=== PATIENT | male | born 1960 | race Hispanic/Latino ===

== ENCOUNTER 2018-01-28 10:50 | Inpatient (IN) | payer BC, OTHER ==
[2018-01-28 10:57] VITALS: BMI 26.4
[2018-01-28] MEDS ORDERED: Sodium Chloride 0.9% 1,000 ML IV STA ×3 (11:36→15:40)
[2018-01-28 12:44] LABS: BASO % 0.1 % (0.0-2.0); EOS % 0.1 % (0.0-4.0); HEMOGLOBIN 14.6 g/dL (12.0-18.0); LYMPH # 0.9 K/uL (1.0-4.3); LYMPH % 8.3 % (20.0-40.0); MEAN CORPUSCULAR HGB CONC 33.3 g/dL (33.0-37.0); MEAN PLATELET VOLUME 10.6 fl (7.2-11.7); MONO # 1.2 K/uL (0.0-0.8); MONO % 10.7 % (0.0-10.0); NEUT # 8.7 K/uL (1.8-7.0); NEUT % 80.8 % (50.0-75.0); NRBC % 0.1 % (0.0-0.0); PLATELET COUNT 162 K/uL (130-400); RBC 5.22 Mil/uL (4.40-5.90); RED CELL DISTRIBUTION WIDTH 14.9 % (11.5-14.5); WHITE BLOOD COUNT 10.8 K/uL (4.8-10.8)
[2018-01-28 12:47] LABS: SQUAMOUS EPITHIAL 1 /hpf (0-5); URINE BILIRUBIN NEGATIVE (NEGATIVE); URINE BLOOD NEGATIVE (NEGATIVE); URINE CLARITY SLIGHTY-CLOUDY (Clear); URINE COLOR YELLOW (YELLOW); URINE GLUCOSE (UA) NEG (Normal); URINE LEUKOCYTE ESTERASE NEG Leu/uL (Negative); URINE PROTEIN 30 mg/dL (NEGATIVE); URINE UROBILINOGEN 0.2-1.0 mg/dL (0.2-1.0)
[2018-01-28 12:50] LABS: INR 1.2; PROTHROMBIN TIME 13.5 Seconds (9.8-13.1)
[2018-01-28 12:52] LABS: PARTIAL THROMBOPLASTIN TIME 28.7 Seconds (25.6-37.1)
[2018-01-28 12:55] LABS: ALB/GLOB RATIO 1.1 (1.0-2.1); ALT/SGPT 64 U/L (21-72); AST/SGOT 40 U/L (17-59); BLOOD UREA NITROGEN 16 mg/dl (9-20); CALCIUM 9.2 mg/dL (8.4-10.2); GFR NON-AFRICAN AMERICAN > 60; LIPASE 24 U/L (23-300)
--- NOTE | 2018-01-28 12:58 | CT ---
Date of service: 01/28/2018 PROCEDURE: CT Abdomen and Pelvis without intravenous contrast HISTORY: rule out renal stone COMPARISON: CT scan of the abdomen and pelvis dated 10/27/2014. TECHNIQUE: Contiguous images were obtained from the domes of the diaphragms to the upper thighs without the administration of intravenous contrast. Oral contrast was not administered. Radiation dose: Total exam DLP = 539.2 mGy-cm. This CT exam was performed using one or more of the following dose reduction techniques: Automated exposure control, adjustment of the mA and/or kV according to patient size, and/or use of iterative reconstruction technique. FINDINGS: LOWER THORAX: Medial right lower lobe patchy consolidation. Heart size normal. No pleural effusion LIVER: Unremarkable. No gross lesion or ductal dilatation. GALLBLADDER AND BILE DUCTS: Unremarkable. PANCREAS: Unremarkable. No gross lesion or ductal dilatation. SPLEEN: Unremarkable. ADRENALS: Unremarkable. No mass. KIDNEYS AND URETERS: Punctate left upper pole calculus. No hydronephrosis. No solid mass. VASCULATURE: Unremarkable. No aortic aneurysm. BOWEL: Unremarkable. No obstruction. No gross mural thickening. APPENDIX: Appendicolith without appendiceal wall thickening. PERITONEUM: Small fat containing umbilical hernia. Small fat containing left inguinal hernia. No free fluid. No free air. LYMPH NODES: Unremarkable. No enlarged lymph nodes. BLADDER: Unremarkable. REPRODUCTIVE: Unremarkable. BONES: No acute fracture. OTHER FINDINGS: None. IMPRESSION: Right lower lobe pneumonia. Punctate nonobstructive left nephrolith. Redemonstration of calcified appendicolith without CT evidence for acute appendicitis.
[2018-01-28 13:32] LABS: BANDS 1 % (0-2); LYMPHOCYTE 11 % (20-50); MONOCYTE 9 % (0-10); NEUTROPHIL 79 % (42-75); TOTAL CELLS COUNTED 100
[2018-01-28 13:33] LABS: ANISOCYTOSIS SLIGHT; PLATELET ESTIMATE NORMAL (NORMAL)
--- NOTE | 2018-01-28 13:56 | RAD ---
Date of service: 01/28/2018 HISTORY: possible admission COMPARISON: No prior. FINDINGS: LUNGS: Medial right lower lobe patchy consolidation. PLEURA: No significant pleural effusion identified, no pneumothorax apparent. CARDIOVASCULAR: Normal. OSSEOUS STRUCTURES: No significant abnormalities. VISUALIZED UPPER ABDOMEN: Normal. OTHER FINDINGS: None. IMPRESSION: Medial right lower lobe patchy consolidation.
[2018-01-28 14:22] LABS: VENOUS BLOOD GAS BASE EXCESS 1.7 mmol/L (0.0-2.0); VENOUS BLOOD GAS PCO2 38 mmHg (40-60); VENOUS BLOOD GAS PO2 23 mm/Hg (30-55); VENOUS BLOOD PH 7.44 (7.32-7.43)
[2018-01-28] MEDS ORDERED: cefTRIAXone (Rocephin) 1 gm Inj ONE (14:22)
--- NOTE | 2018-01-28 15:05 | ED PDOC ---
HPI: General Adult Time Seen by Provider: 01/28/18 11:20 Chief Complaint (Nursing): Fever Chief Complaint (Provider): Fever and right back pain History Per: Patient History/Exam Limitations: no limitations Onset/Duration Of Symptoms: Days (x5) Current Symptoms Are (Timing): Still Present Additional Complaint(s): 57 year old male with 5 days of worsening fever and right back pain radiating to right leg states he has history of renal stones with a previous stent placed on left at this hospital. Stent has since been removed without problems. Patient went to an urgent care center several days ago where he was diagnosed with sciatic pain and constipation and given outpatient medications. This morning patient went to follow up with PMD and based on being febrile with rigors, worsening pain and fever, he was referred to the ED to rule out stones and pylenephritis. Of note, patient states he started coughing yesterday with clear sputum, but without any chest pain. PMD: Dr. Harper Allergies: none Medications: none Past Medical History Reviewed: Historical Data, Nursing Documentation, Vital Signs Vital Signs: Last Vital Signs Temp 98.4 F 02/01/18 08:50 Pulse 50 L 02/01/18 08:50 Resp 18 02/01/18 08:50 BP 129/80 02/01/18 08:50 Pulse Ox 100 02/02/18 10:58 - Medical History PMH: Kidney Stones Denies: Chronic Kidney Disease - Family History Family History: States: Unknown Family Hx - Home Medications Home Medications: Ambulatory Orders Medication Instructions Recorded RX: Levofloxacin [Levaquin] 750 mg PO DAILY 7 Days #7 tablet 02/01/18 - Allergies Allergies/Adverse Reactions: Allergies Allergy/AdvReac Type Severity Reaction Status Date / Time No Known Allergies Allergy Verified 10/27/14 06:52 Review of Systems ROS Statement: Except As Marked, All Systems Reviewed And Found Negative Constitutional: Positive for: Fever, Chills, Sweats, Other (shaking) Musculoskeletal: Positive for: Back Pain (right and right flank pain ), Leg Pain (right) Physical Exam - Reviewed Nursing Documentation Reviewed: Yes Vital Signs Reviewed: Yes - Physical Exam Skin: Positive for: Diaphoresis (shaking, chills) Gastrointestinal/Abdominal: Positive for: Normal Exam, Soft. Negative for: Tenderness Extremity: Positive for: Normal ROM (full ROM on stretcher) Comments: Exam is significant for right flank pain. Patient is in no cardiopulmonary distress, is borderline febrile, but otherwise vitals are within normal limits. - Laboratory Results Result Diagrams: 02/01/18 05:55 02/01/18 05:55 - ECG O2 Sat by Pulse Oximetry: 100 (RA) Pulse Ox Interpretation: Normal Medical Decision Making Medical Decision Making: Time: 1134 Workup for pylenephritis versus renal stones. Rule out sepsis. Initial Plan: --labs with lactate and cultures --Morphine and toradol for pain --IV fluids --CT abdomen and pelvis w/o contrast Time: 1313 --CT shows right lower lung infiltrate. Labs otherwise unremarkable. Patient with improved vitals and pain. Will get CXR for further evaluation. IV Cipro initially given for possible pylenephritis and Rocephin for pain. Will reevaluate patient based on symptoms of back pain as CT findings are not consistent with pylenephritis and renal stones as a cause of pain. Time: 1600 --Case discussed with PMD, Dr. Harper, who agrees with admission for pneumonia. Patient will be admitted under the hospitalist. Scribe Attestation: Documented by Dorinda Schofield, acting as a scribe for Karolina Lerma MD Provider Scribe Attestation: All medical record entries made by the Scribe were at my direction and personall y dictated by me. I have reviewed the chart and agree that the record accurately reflects my personal performance of the history, physical exam, medical decision making, and the department course for this patient. I have also personally directed, reviewed, and agree with the discharge instructions and disposition. Disposition - Clinical Impression Clinical Impression: Flank pain, Ureterolithiasis, Fever in adult - Disposition Disposition Time: 14:00 Condition: GOOD
[2018-01-28] MEDS ORDERED: Sodium Chloride 3% for Inhalation 4 ML VIAL.NEB IH PRN (17:14)
[2018-01-28] MEDS: Sodium Chloride 0.9% 1,000 ML IV SCH (18:23)
--- NOTE | 2018-01-28 18:29 | CP.PCM.HP ---
<Abhijit Reid - Last Filed: 01/28/18 18:14> History of Present Illness - History of Present Illness History of Present Illness: CC: fever HPI: 57 y/o man w/ pmh of nephrolithiasis presents to the ED w/ fever. Patient reports fever has been going on for 4-5 days w/ Tmax of 102.0F. Patient reports associated dry cough, chills, and night sweats. Patient also reports right sided lower back pain for 4-5 days as well, sharp in nature, radiating down right leg. Patient went to urgent care and then PMD. Patient sent to ED from PMD. Patient denies sick contacts but reports travel from [place] 3 months ago. 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 Patient denies nausea, vomiting, diarrhea, and dysuria. Patient reports mild tension headache. ED course: vitals: 99.8F, 76 beats/min, 114/60 mm Hg, resp 20, O2 100% room air CBC: 10.8>14.6/43.8<162 coags: PT 13.5, INR 1.2, aPTT 28.7 CMP: 137/4.0, 99/31, 16/1.0, glucose 114, AST 40, ALT 64, alk phos 104 lipase 24 VBG: pO2 23, pH 7.44, pCO2 38, HCO3 24.8, lactate 2.4 UA: neg glucose, ketones, blood, nitrate, leukocyte esterase PMD: Dr. Harper PMH: nephrolithiasis meds: none PSH: left ureteral stent for nephrolithiasis 10/2014 Fam: father alive 87 y/o, prostate cancer in remission SOC: denies smoking, alcohol, and drugs ROS: 12 points assessed and positive findings listed in HPI above Present on Admission - Present on Admission Any Indicators Present on Admission: No History of DVT/PE: No History of Uncontrolled Diabetes: No Urinary Catheter: No Decubitus Ulcer Present: No Review of Systems - Review of Systems All systems: reviewed and no additional remarkable complaints except - Constitutional Constitutional: As Per HPI, Chills, Fever, Headache, Night Sweats - EENT Eyes: absent: Change in Vision - Cardiovascular Cardiovascular: absent: Chest Pain - Respiratory Respiratory: Cough. absent: Dyspnea, Hemoptysis - Gastrointestinal Gastrointestinal: absent: Abdominal Pain, Diarrhea, Hematochezia, Melena, Nausea , Vomiting - Genitourinary Genitourinary: absent: Dysuria, Urinary Frequency - Integumentary Integumentary: absent: Rash - Neurological Neurological: absent: Dizziness Past Patient History - Infectious Disease Hx of Infectious Diseases: None - Past Medical History & Family History Past Medical History?: Yes - Past Social History Smoking Status: Never Smoked - CARDIAC Hx Cardiac Disorders: No - PULMONARY Hx Respiratory Disorders: No - NEUROLOGICAL Hx Neurological Disorder: No - HEENT Hx HEENT Problems: No - RENAL Hx Chronic Kidney Disease: No - ENDOCRINE/METABOLIC Hx Endocrine Disorders: No - HEMATOLOGICAL/ONCOLOGICAL Hx Blood Disorders: No - INTEGUMENTARY Hx Dermatological Problems: No - MUSCULOSKELETAL/RHEUMATOLOGICAL Hx Musculoskeletal Disorders: No Hx Falls: No - GASTROINTESTINAL Hx Hemorrhoids: Yes (@18 years of age) - GENITOURINARY/GYNECOLOGICAL Hx Genitourinary Disorders: No - PSYCHIATRIC Hx Psychophysiologic Disorder: No Hx Substance Use: No - SURGICAL HISTORY Hx Surgeries: No - ANESTHESIA Hx Anesthesia: Yes Hx Anesthesia Reactions: No Meds Allergies/Adverse Reactions: Allergies Allergy/AdvReac Type Severity Reaction Status Date / Time No Known Allergies Allergy Verified 10/27/14 06:52 Physical Exam - Constitutional Appears: Non-toxic, No Acute Distress - Head Exam Head Exam: ATRAUMATIC, NORMAL INSPECTION, NORMOCEPHALIC - Eye Exam Eye Exam: Normal appearance - ENT Exam ENT Exam: Mucous Membranes Moist - Neck Exam Neck exam: Positive for: Full Rom. Negative for: Tenderness - Respiratory Exam Respiratory Exam: Decreased Breath Sounds (RLL decreased breath sounds). absent : Accessory Muscle Use, Rales, Rhonchi, Wheezes, Respiratory Distress - Cardiovascular Exam Cardiovascular Exam: REGULAR RHYTHM, RRR, +S1, +S2. absent: Tachycardia - GI/Abdominal Exam GI & Abdominal Exam: Normal Bowel Sounds, Soft. absent: Distended, Tenderness - Extremities Exam Extremities exam: Positive for: normal capillary refill. Negative for: calf tenderness, pedal edema, tenderness - Back Exam Back exam: absent: CVA tenderness (L), CVA tenderness (R), muscle spasm, paraspinal tenderness, rash noted, tenderness Additional comments: currently no CVA tenderness bilaterally, straight leg test negative - Neurological Exam Neurological exam: Alert, Oriented x3 - Skin Skin Exam: Dry, Intact, Normal Color, Warm Results - Vital Signs Recent Vital Signs: Last Vital Signs Temp 99.8 F H 01/28/18 18:13 Pulse 76 01/28/18 18:13 Resp 20 01/28/18 18:13 BP 114/60 01/28/18 18:13 Pulse Ox 100 01/28/18 17:59 - Labs Result Diagrams: 01/28/18 12:25 01/28/18 12:25 Labs: Laboratory Results - last 24 hr 01/28/18 01/28/18 01/28/18 12:25 12:25 12:25 WBC 10.8 D RBC 5.22 Hgb 14.6 Hct 43.8 MCV 84.0 MCH 28.0 MCHC 33.3 RDW 14.9 H Plt Count 162 MPV 10.6 Neut % (Auto) 80.8 H Lymph % (Auto) 8.3 L [place] % (Auto) 10.7 H Eos % (Auto) 0.1 Baso % (Auto) 0.1 Neut # (Auto) 8.7 H Lymph # (Auto) 0.9 L [place] # (Auto) 1.2 H Eos # (Auto) 0.0 Baso # (Auto) 0.0 Neutrophils % (Manual) 79 H Band Neutrophils % 1 Lymphocytes % (Manual) 11 L Monocytes % (Manual) 9 Platelet Estimate Normal Anisocytosis (manual) Slight PT 13.5 H INR 1.2 APTT 28.7 pO2 VBG pH VBG pCO2 VBG HCO3 VBG Total CO2 VBG O2 Sat (Calc) VBG Base Excess VBG Potassium Glucose Lactate FiO2 Blood Gas Comments Crit Value Called To Crit Value Called By Crit Value Read Back Blood Gas Notified Time Sodium 137 Potassium 4.0 Chloride 99 Carbon Dioxide 31 H Anion Gap 11 BUN 16 Creatinine 1.0 Est GFR ( Amer) > 60 Est GFR (Non-Af Amer) > 60 Random Glucose 114 H Calcium 9.2 Total Bilirubin 0.7 AST 40 ALT 64 Alkaline Phosphatase 104 Total Protein 7.6 Albumin 4.0 Globulin 3.5 Albumin/Globulin Ratio 1.1 Lipase 24 Venous Blood Potassium Urine Color Urine Clarity Urine pH Ur Specific [place] Urine Protein Urine Glucose (UA) Urine Ketones Urine Blood Urine Nitrate Urine Bilirubin Urine Urobilinogen Ur Leukocyte Esterase Urine RBC (Auto) Urine Microscopic WBC Ur Squamous Epith Cells 01/28/18 01/28/18 12:25 14:15 WBC RBC Hgb Hct MCV MCH MCHC RDW Plt Count MPV Neut % (Auto) Lymph % (Auto) [place] % (Auto) Eos % (Auto) Baso % (Auto) Neut # (Auto) Lymph # (Auto) [place] # (Auto) Eos # (Auto) Baso # (Auto) Neutrophils % (Manual) Band Neutrophils % Lymphocytes % (Manual) Monocytes % (Manual) Platelet Estimate Anisocytosis (manual) PT INR APTT pO2 23 L VBG pH 7.44 H VBG pCO2 38 L VBG HCO3 24.8 VBG Total CO2 27.0 VBG O2 Sat (Calc) 50.7 VBG Base Excess 1.7 VBG Potassium 3.8 Glucose 170 H Lactate 2.4 H FiO2 21.0 Blood Gas Comments Lac=2.4 Crit Value Called To soham Calvert Crit Value Called By 22 Crit Value Read Back Y Blood Gas Notified Time 1421 Sodium 131.0 L Potassium Chloride 100.0 Carbon Dioxide Anion Gap BUN Creatinine Est GFR ( Amer) Est GFR (Non-Af Amer) Random Glucose Calcium Total Bilirubin AST ALT Alkaline Phosphatase Total Protein Albumin Globulin Albumin/Globulin Ratio Lipase Venous Blood Potassium 3.8 Urine Color Yellow Urine Clarity Slighty-cloudy Urine pH 5.0 Ur Specific [place] 1.030 Urine Protein 30 Urine Glucose (UA) Neg Urine Ketones Negative Urine Blood Negative Urine Nitrate Negative Urine Bilirubin Negative Urine Urobilinogen 0.2-1.0 Ur Leukocyte Esterase Neg Urine RBC (Auto) 10 H Urine Microscopic WBC 3 Ur Squamous Epith Cells 1 Assessment & Plan (1) Fever Status: Acute - Assessment and Plan (Free Text) Assessment: 57 y/o man w/ pmh of nephrolithiasis presents to the ED w/ fever. Plan: Fever - most likely due to RLL community acquired pneumonia - vital signs stable - CBC: 10.8>14.6/43.8<162 - coags: PT 13.5, INR 1.2, aPTT 28.7 - CMP: 137/4.0, 99/31, 16/1.0, glucose 114, AST 40, ALT 64, alk phos 104 - lipase 24 - VBG: pO2 23, pH 7.44, pCO2 38, HCO3 24.8, lactate 2.4 - UA: neg glucose, ketones, blood, nitrate, leukocyte esterase - f/u CBC, CMP - f/u blood, sputum, and urine culture - f/u flu - tylenol 650 PO Q6h prn for fever - azithromycin 500 mg IV daily - rocephin 1 gm IV daily - IVF NS 150 mL/hr - admit to Tele Prophylactic measures - DVT: lovenox 40 mg SC daily <José Luis Guan D - Last Filed: 01/28/18 19:21> Results - Vital Signs Recent Vital Signs: Last Vital Signs Temp 98.6 F 01/28/18 18:43 Pulse 70 01/28/18 18:43 Resp 18 01/28/18 18:43 BP 128/70 01/28/18 18:43 Pulse Ox 94 L 01/28/18 18:43 - Labs Result Diagrams: 01/28/18 12:25 01/28/18 12:25 Labs: Laboratory Results - last 24 hr 01/28/18 01/28/18 01/28/18 12:25 12:25 12:25 WBC 10.8 D RBC 5.22 Hgb 14.6 Hct 43.8 MCV 84.0 MCH 28.0 MCHC 33.3 RDW 14.9 H Plt Count 162 MPV 10.6 Neut % (Auto) 80.8 H Lymph % (Auto) 8.3 L [place] % (Auto) 10.7 H Eos % (Auto) 0.1 Baso % (Auto) 0.1 Neut # (Auto) 8.7 H Lymph # (Auto) 0.9 L [place] # (Auto) 1.2 H Eos # (Auto) 0.0 Baso # (Auto) 0.0 Neutrophils % (Manual) 79 H Band Neutrophils % 1 Lymphocytes % (Manual) 11 L Monocytes % (Manual) 9 Platelet Estimate Normal Anisocytosis (manual) Slight PT 13.5 H INR 1.2 APTT 28.7 pO2 VBG pH VBG pCO2 VBG HCO3 VBG Total CO2 VBG O2 Sat (Calc) VBG Base Excess VBG Potassium Glucose Lactate FiO2 Blood Gas Comments Crit Value Called To Crit Value Called By Crit Value Read Back Blood Gas Notified Time Sodium 137 Potassium 4.0 Chloride 99 Carbon Dioxide 31 H Anion Gap 11 BUN 16 Creatinine 1.0 Est GFR ( Amer) > 60 Est GFR (Non-Af Amer) > 60 Random Glucose 114 H Calcium 9.2 Total Bilirubin 0.7 AST 40 ALT 64 Alkaline Phosphatase 104 Total Protein 7.6 Albumin 4.0 Globulin 3.5 Albumin/Globulin Ratio 1.1 Lipase 24 Venous Blood Potassium Urine Color Urine Clarity Urine pH Ur Specific [place] Urine Protein Urine Glucose (UA) Urine Ketones Urine Blood Urine Nitrate Urine Bilirubin Urine Urobilinogen Ur Leukocyte Esterase Urine RBC (Auto) Urine Microscopic WBC Ur Squamous Epith Cells Influenza Typ A,B (EIA) 01/28/18 01/28/18 01/28/18 12:25 14:15 17:56 WBC RBC Hgb Hct MCV MCH MCHC RDW Plt Count MPV Neut % (Auto) Lymph % (Auto) [place] % (Auto) Eos % (Auto) Baso % (Auto) Neut # (Auto) Lymph # (Auto) [place] # (Auto) Eos # (Auto) Baso # (Auto) Neutrophils % (Manual) Band Neutrophils % Lymphocytes % (Manual) Monocytes % (Manual) Platelet Estimate Anisocytosis (manual) PT INR APTT pO2 23 L VBG pH 7.44 H VBG pCO2 38 L VBG HCO3 24.8 VBG Total CO2 27.0 VBG O2 Sat (Calc) 50.7 VBG Base Excess 1.7 VBG Potassium 3.8 Glucose 170 H Lactate 2.4 H FiO2 21.0 Blood Gas Comments Lac=2.4 Crit Value Called To soham Calvert Crit Value Called By 22 Crit Value Read Back Y Blood Gas Notified Time 1421 Sodium 131.0 L Potassium Chloride 100.0 Carbon Dioxide Anion Gap BUN Creatinine Est GFR ( Amer) Est GFR (Non-Af Amer) Random Glucose Calcium Total Bilirubin AST ALT Alkaline Phosphatase Total Protein Albumin Globulin Albumin/Globulin Ratio Lipase Venous Blood Potassium 3.8 Urine Color Yellow Urine Clarity Slighty-cloudy Urine pH 5.0 Ur Specific [place] 1.030 Urine Protein 30 Urine Glucose (UA) Neg Urine Ketones Negative Urine Blood Negative Urine Nitrate Negative Urine Bilirubin Negative Urine Urobilinogen 0.2-1.0 Ur Leukocyte Esterase Neg Urine RBC (Auto) 10 H Urine Microscopic WBC 3 Ur Squamous Epith Cells 1 Influenza Typ A,B (EIA) Negative for flu a/b Attending/Attestation - Attestation I have personally seen and examined this patient.: Yes I have fully participated in the care of the patient.: Yes I have reviewed all pertinent clinical information: Yes
[2018-01-29] MEDS: Sodium Chloride 0.9% 1,000 ML IV SCH ×2 (00:13→23:35)
[2018-01-29 06:20] LABS: BASO # 0.1 K/uL (0.0-0.2); BASO % 0.8 % (0.0-2.0); EOS # 0.1 K/uL (0.0-0.7); EOS % 0.5 % (0.0-4.0); HEMOGLOBIN 13.2 g/dL (12.0-18.0); LYMPH # 1.3 K/uL (1.0-4.3); MEAN CELL VOLUME 83.7 fl (80.0-94.0); MEAN CORPUSCULAR HEMOGLOBIN 28.7 pg (27.0-31.0); MEAN CORPUSCULAR HGB CONC 34.3 g/dL (33.0-37.0); MEAN PLATELET VOLUME 10.2 fl (7.2-11.7); MONO # 1.3 K/uL (0.0-0.8); MONO % 13.2 % (0.0-10.0); NEUT # 6.8 K/uL (1.8-7.0); NEUT % 71.5 % (50.0-75.0); RBC 4.61 Mil/uL (4.40-5.90); WHITE BLOOD COUNT 9.6 K/uL (4.8-10.8)
[2018-01-29 06:37] LABS: BLOOD UREA NITROGEN 17 mg/dl (9-20); GFR NON-AFRICAN AMERICAN > 60
[2018-01-29] MEDS ORDERED: Pantoprazole 40 mg EC Tab PO SCH (09:00)
[2018-01-29] MEDS: Azithromycin 500 MG in Sodium Chloride 0.9% 250 ML IVPB SCH (09:37)
[2018-01-29] MEDS: Enoxaparin 40 mg Syringe SC SCH (09:48)
--- NOTE | 2018-01-29 10:08 | CP.PCM.PN ---
Subjective - Date & Time of Evaluation Date of Evaluation: 01/29/18 Time of Evaluation: 08:14 - Subjective Subjective: Patient seen and examined today at bedside this morning reports feeling better but pt found with fever (99.7 F),Tylenol given, reports cough is better than yesterday. Otherwise he denies acute overnight events, nausea, vomiting, abd or chest pain. No diarrhea or urinary symptoms. Objective - Vital Signs/Intake and Output Vital Signs (last 24 hours): Temp Pulse Resp BP Pulse Ox 99.1 F 71 19 124/71 96 01/29/18 08:40 01/29/18 08:40 01/29/18 08:40 01/29/18 08:40 01/29/18 08:40 - Medications Medications: Current Medications Acetaminophen (Tylenol 325mg Tab) 650 mg PO Q6 PRN PRN Reason: Fever >100.4 F Last Admin: 01/29/18 00:11 Dose: 650 mg Enoxaparin Sodium (Lovenox) 40 mg SC DAILY KAVITHA; Protocol Last Admin: 01/29/18 09:48 Dose: 40 mg Sodium Chloride (Sodium Chloride 0.9%) 1,000 mls @ 150 mls/hr IV .Q6H40M KAVITHA Last Admin: 01/29/18 00:13 Dose: 150 mls/hr Azithromycin 500 mg/ Sodium (Chloride) 250 mls @ 250 mls/hr IVPB DAILY KAVITHA; Protocol Last Admin: 01/29/18 09:37 Dose: 250 mls/hr Ceftriaxone Sodium 1 gm/ (Sodium Chloride) 100 mls @ 100 mls/hr IVPB DAILY KAVITHA; Protocol Last Admin: 01/29/18 09:48 Dose: 100 mls/hr Pantoprazole Sodium (Protonix Ec Tab) 40 mg PO DAILY KAVITHA Last Admin: 01/29/18 09:48 Dose: 40 mg - Labs Labs: 01/29/18 06:00 01/29/18 06:00 PT 13.5 Seconds (9.8-13.1) H 01/28/18 12:25 INR 1.2 01/28/18 12:25 APTT 28.7 Seconds (25.6-37.1) 01/28/18 12:25 - Constitutional Appears: No Acute Distress - Eye Exam Eye Exam: EOMI, PERRL - Respiratory Exam Respiratory Exam: Decreased Breath Sounds. absent: Accessory Muscle Use, Chest Wall Tenderness, Rales, Wheezes - Cardiovascular Exam Cardiovascular Exam: REGULAR RHYTHM. absent: Tachycardia - GI/Abdominal Exam GI & Abdominal Exam: Soft. absent: Distended, Tenderness - Extremities Exam Extremities Exam: absent: Calf Tenderness, Pedal Edema - Neurological Exam Neurological Exam: Alert, Awake, Oriented x3 - Skin Skin Exam: Dry, Warm Assessment and Plan - Assessment and Plan (Free Text) Assessment: 57 y/o man w/ PMH of nephrolithiasis presents to the ED w/ fever. Plan: RLL CAP Pneumonia - CXR: Medial right lower lobe patchy consolidation - Chest CT: Right lower lobe pneumonia. Punctate nonobstructive left nephrolith. Redemonstration of calcified appendicolith without CT evidence for acute appendicitis. - Influenza serology negative - vital signs stable - CBC and CMP wnl - f/u blood, sputum, and urine culture - tylenol 650 PO Q6h prn for fever - azithromycin 500 mg IV daily (day 1) - rocephin 1 gm IV daily (day 1) - IVF NS 150 mL/hr Fever - febrile during night, 2/2 to CAP - T now 99.7, Tylenol given - tylenol 650 PO Q6h prn for fever - blood, urine and sputum cx pending. DVT Prophylaxis - lovenox 40 mg SC daily
[2018-01-29] MEDS: Saccharomyces Boulardi 250 mg Cap PO SCH (17:05)
[2018-01-30 06:31] LABS: BASO % 0.4 % (0.0-2.0); EOS # 0.2 K/uL (0.0-0.7); EOS % 1.9 % (0.0-4.0); HEMOGLOBIN 12.4 g/dL (12.0-18.0); LYMPH # 1.4 K/uL (1.0-4.3); LYMPH % 16.4 % (20.0-40.0); MEAN CELL VOLUME 83.2 fl (80.0-94.0); MEAN CORPUSCULAR HEMOGLOBIN 28.5 pg (27.0-31.0); MEAN CORPUSCULAR HGB CONC 34.2 g/dL (33.0-37.0); MEAN PLATELET VOLUME 10.6 fl (7.2-11.7); MONO # 1.3 K/uL (0.0-0.8); MONO % 14.8 % (0.0-10.0); NEUT # 5.8 K/uL (1.8-7.0); NEUT % 66.5 % (50.0-75.0); RBC 4.35 Mil/uL (4.40-5.90); RED CELL DISTRIBUTION WIDTH 15.4 % (11.5-14.5); WHITE BLOOD COUNT 8.7 K/uL (4.8-10.8)
[2018-01-30 07:05] LABS: ALBUMIN 2.8 g/dL (3.5-5.0); ALT/SGPT 47 U/L (21-72); AST/SGOT 24 U/L (17-59); BLOOD UREA NITROGEN 17 mg/dl (9-20); CALCIUM 7.9 mg/dL (8.4-10.2); GFR NON-AFRICAN AMERICAN > 60
[2018-01-30] MEDS: Saccharomyces Boulardi 250 mg Cap PO SCH ×2 (08:12→16:00)
[2018-01-30] MEDS: Azithromycin 500 MG in Sodium Chloride 0.9% 250 ML IVPB SCH (08:13)
[2018-01-30] MEDS: Enoxaparin 40 mg Syringe SC SCH (08:13)
[2018-01-30] MEDS: Sodium Chloride 0.9% 1,000 ML IV SCH (08:14)
--- NOTE | 2018-01-30 09:32 | CP.PCM.CON ---
History of Present Illness - History of Present Illness History of Present Illness: Infectious Disease Consultation Note- asked to see this patietn at the request of for pneumonia and help with antibiotic management. HPI- Patient is a 57 year old male with pmh of nephrolithiasis only who states last week he developed new sudden back pain adn went to [facility] and he was told it is sciatica and he saw his chiropractor who tild him it was not sciatica and to be seen by his doctor . the next day he developed fever and saw his doctor who advised him to come to [facility] for further evaluation and treatment. He states he had dry cough but denies any sob and denies anyy abd. pain, denies any nausea or vomiting, denies any SMART, denies any chest pain Patient denies sick contacts but reports travel from [place] 3 months ago. 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 Patient denies , diarrhea, and dysuria. he states he was found to have kidney stones on admission along with right lung pneumonia. He states he feels better since admission but still has dull pain in b/l lower back. denies any weakness of the legs. denies any weight loss, denies any night sweats, charan any hemoptusis. PMD: Dr. Harper PMH: nephrolithiasis meds: none PSH: left ureteral stent for nephrolithiasis 10/2014 Fam: father alive 87 y/o, prostate cancer in remission SOC: denies smoking, alcohol, and drugs Review of Systems - Review of Systems Review of Systems: ROS- as stated in HPI Past Patient History - Infectious Disease Hx of Infectious Diseases: None - Past Medical History & Family History Past Medical History?: Yes - Past Social History Smoking Status: Never Smoked Drugs: Denies Home Situation {Lives}: With Family - CARDIAC Hx Cardiac Disorders: No - PULMONARY Hx Respiratory Disorders: No - NEUROLOGICAL Hx Neurological Disorder: No - HEENT Hx HEENT Problems: No - RENAL Hx Chronic Kidney Disease: No Hx Kidney Stones: Yes - ENDOCRINE/METABOLIC Hx Endocrine Disorders: No - HEMATOLOGICAL/ONCOLOGICAL Hx Blood Disorders: No - INTEGUMENTARY Hx Dermatological Problems: No - MUSCULOSKELETAL/RHEUMATOLOGICAL Hx Musculoskeletal Disorders: No Hx Falls: No - GASTROINTESTINAL Hx Gastrointestinal Disorders: Yes Hx Hemorrhoids: Yes (@18 years of age) - GENITOURINARY/GYNECOLOGICAL Hx Genitourinary Disorders: No - PSYCHIATRIC Hx Psychophysiologic Disorder: No Hx Substance Use: No - SURGICAL HISTORY Hx Surgeries: Yes Other/Comment: removal of kidney stones 1 yr ago - ANESTHESIA Hx Anesthesia: Yes Hx Anesthesia Reactions: No Meds Allergies/Adverse Reactions: Allergies Allergy/AdvReac Type Severity Reaction Status Date / Time No Known Allergies Allergy Verified 10/27/14 06:52 - Medications Medications: Current Medications Acetaminophen (Tylenol 325mg Tab) 650 mg PO Q6 PRN PRN Reason: Fever >100.4 F Last Admin: 01/29/18 18:26 Dose: 650 mg Enoxaparin Sodium (Lovenox) 40 mg SC DAILY KAVITHA; Protocol Last Admin: 01/30/18 08:13 Dose: 40 mg Sodium Chloride (Sodium Chloride 0.9%) 1,000 mls @ 150 mls/hr IV .Q6H40M KAVITHA Last Admin: 01/30/18 08:14 Dose: 150 mls/hr Azithromycin 500 mg/ Sodium (Chloride) 250 mls @ 250 mls/hr IVPB DAILY KAVITHA; Protocol Last Admin: 01/30/18 08:13 Dose: 250 mls/hr Ceftriaxone Sodium 1 gm/ (Sodium Chloride) 100 mls @ 100 mls/hr IVPB DAILY KAVITHA; Protocol Last Admin: 01/30/18 08:13 Dose: 100 mls/hr Saccharomyces Boulardii (Florastor) 250 mg PO BID KAVITHA Last Admin: 01/30/18 08:12 Dose: 250 mg Physical Exam - Constitutional Appears: Non-toxic, No Acute Distress - Head Exam Head Exam: ATRAUMATIC - Eye Exam Eye Exam: EOMI, PERRL - ENT Exam ENT Exam: Normal Oropharynx - Neck Exam Neck exam: Positive for: Full Rom - Respiratory Exam Respiratory Exam: NORMAL BREATHING PATTERN Additional comments: mild crackles at right lung base No wheezing - Cardiovascular Exam Cardiovascular Exam: RRR, +S1, +S2 - GI/Abdominal Exam GI & Abdominal Exam: Normal Bowel Sounds, Soft Additional comments: NT, Nd no cva tenderness b/l - Extremities Exam Extremities exam: Positive for: normal inspection - Neurological Exam Neurological exam: Alert, Oriented x3 Results - Vital Signs Recent Vital Signs: Last Vital Signs Temp 99.6 F 01/30/18 08:29 Pulse 59 L 01/30/18 08:29 Resp 19 01/30/18 08:29 BP 127/69 01/30/18 08:29 Pulse Ox 95 01/30/18 08:29 - Labs Result Diagrams: 01/30/18 05:50 01/30/18 05:50 Labs: Laboratory Results - last 24 hr 01/30/18 01/30/18 05:50 05:50 WBC 8.7 RBC 4.35 L Hgb 12.4 Hct 36.2 MCV 83.2 MCH 28.5 MCHC 34.2 RDW 15.4 H Plt Count 164 MPV 10.6 Neut % (Auto) 66.5 Lymph % (Auto) 16.4 L Mason % (Auto) 14.8 H Eos % (Auto) 1.9 Baso % (Auto) 0.4 Neut # (Auto) 5.8 Lymph # (Auto) 1.4 Mason # (Auto) 1.3 H Eos # (Auto) 0.2 Baso # (Auto) 0.0 Sodium 135 Potassium 4.0 Chloride 104 Carbon Dioxide 25 Anion Gap 10 BUN 17 Creatinine 1.2 Est GFR ( Amer) > 60 Est GFR (Non-Af Amer) > 60 Random Glucose 105 Calcium 7.9 L Total Bilirubin 0.5 AST 24 ALT 47 Alkaline Phosphatase 85 Total Protein 5.6 L Albumin 2.8 L D Globulin 2.8 Albumin/Globulin Ratio 1.0 Laboratory Results - last 72 hr 01/28/18 01/28/18 01/28/18 12:25 12:25 12:25 WBC 10.8 D RBC 5.22 Hgb 14.6 Hct 43.8 MCV 84.0 MCH 28.0 MCHC 33.3 RDW 14.9 H Plt Count 162 MPV 10.6 Neut % (Auto) 80.8 H Lymph % (Auto) 8.3 L Mason % (Auto) 10.7 H Eos % (Auto) 0.1 Baso % (Auto) 0.1 Neut # (Auto) 8.7 H Lymph # (Auto) 0.9 L Mason # (Auto) 1.2 H Eos # (Auto) 0.0 Baso # (Auto) 0.0 Neutrophils % (Manual) 79 H Band Neutrophils % 1 Lymphocytes % (Manual) 11 L Monocytes % (Manual) 9 Platelet Estimate Normal Anisocytosis (manual) Slight PT 13.5 H INR 1.2 APTT 28.7 pO2 VBG pH VBG pCO2 VBG HCO3 VBG Total CO2 VBG O2 Sat (Calc) VBG Base Excess VBG Potassium Glucose Lactate FiO2 Blood Gas Comments Crit Value Called To Crit Value Called By Crit Value Read Back Blood Gas Notified Time Sodium 137 Potassium 4.0 Chloride 99 Carbon Dioxide 31 H Anion Gap 11 BUN 16 Creatinine 1.0 Est GFR ( Amer) > 60 Est GFR (Non-Af Amer) > 60 Random Glucose 114 H Calcium 9.2 Total Bilirubin 0.7 AST 40 ALT 64 Alkaline Phosphatase 104 Total Protein 7.6 Albumin 4.0 Globulin 3.5 Albumin/Globulin Ratio 1.1 Lipase 24 Venous Blood Potassium Urine Color Urine Clarity Urine pH Ur Specific [place] Urine Protein Urine Glucose (UA) Urine Ketones Urine Blood Urine Nitrate Urine Bilirubin Urine Urobilinogen Ur Leukocyte Esterase Urine RBC (Auto) Urine Microscopic WBC Ur Squamous Epith Cells Influenza Typ A,B (EIA) 01/28/18 01/28/18 01/28/18 12:25 14:15 17:56 WBC RBC Hgb Hct MCV MCH MCHC RDW Plt Count MPV Neut % (Auto) Lymph % (Auto) Mason % (Auto) Eos % (Auto) Baso % (Auto) Neut # (Auto) Lymph # (Auto) Mason # (Auto) Eos # (Auto) Baso # (Auto) Neutrophils % (Manual) Band Neutrophils % Lymphocytes % (Manual) Monocytes % (Manual) Platelet Estimate Anisocytosis (manual) PT INR APTT pO2 23 L VBG pH 7.44 H VBG pCO2 38 L VBG HCO3 24.8 VBG Total CO2 27.0 VBG O2 Sat (Calc) 50.7 VBG Base Excess 1.7 VBG Potassium 3.8 Glucose 170 H Lactate 2.4 H FiO2 21.0 Blood Gas Comments Lac=2.4 Crit Value Called To soham Calvert Crit Value Called By 22 Crit Value Read Back Y Blood Gas Notified Time 1421 Sodium 131.0 L Potassium Chloride 100.0 Carbon Dioxide Anion Gap BUN Creatinine Est GFR ( Amer) Est GFR (Non-Af Amer) Random Glucose Calcium Total Bilirubin AST ALT Alkaline Phosphatase Total Protein Albumin Globulin Albumin/Globulin Ratio Lipase Venous Blood Potassium 3.8 Urine Color Yellow Urine Clarity Slighty-cloudy Urine pH 5.0 Ur Specific [place] 1.030 Urine Protein 30 Urine Glucose (UA) Neg Urine Ketones Negative Urine Blood Negative Urine Nitrate Negative Urine Bilirubin Negative Urine Urobilinogen 0.2-1.0 Ur Leukocyte Esterase Neg Urine RBC (Auto) 10 H Urine Microscopic WBC 3 Ur Squamous Epith Cells 1 Influenza Typ A,B (EIA) Negative for flu a/b 01/29/18 01/29/18 01/30/18 06:00 06:00 05:50 WBC 9.6 8.7 RBC 4.61 4.35 L Hgb 13.2 12.4 Hct 38.6 36.2 MCV 83.7 83.2 MCH 28.7 28.5 MCHC 34.3 34.2 RDW 15.0 H 15.4 H Plt Count 145 164 MPV 10.2 10.6 Neut % (Auto) 71.5 66.5 Lymph % (Auto) 14.0 L 16.4 L Mason % (Auto) 13.2 H 14.8 H Eos % (Auto) 0.5 1.9 Baso % (Auto) 0.8 0.4 Neut # (Auto) 6.8 5.8 Lymph # (Auto) 1.3 1.4 Mason # (Auto) 1.3 H 1.3 H Eos # (Auto) 0.1 0.2 Baso # (Auto) 0.1 0.0 Neutrophils % (Manual) Band Neutrophils % Lymphocytes % (Manual) Monocytes % (Manual) Platelet Estimate Anisocytosis (manual) PT INR APTT pO2 VBG pH VBG pCO2 VBG HCO3 VBG Total CO2 VBG O2 Sat (Calc) VBG Base Excess VBG Potassium Glucose Lactate FiO2 Blood Gas Comments Crit Value Called To Crit Value Called By Crit Value Read Back Blood Gas Notified Time Sodium 137 Potassium 4.6 Chloride 107 Carbon Dioxide 27 Anion Gap 8 L BUN 17 Creatinine 1.2 Est GFR ( Amer) > 60 Est GFR (Non-Af Amer) > 60 Random Glucose 114 H Calcium 8.0 L Total Bilirubin AST ALT Alkaline Phosphatase Total Protein Albumin Globulin Albumin/Globulin Ratio Lipase Venous Blood Potassium Urine Color Urine Clarity Urine pH Ur Specific [place] Urine Protein Urine Glucose (UA) Urine Ketones Urine Blood Urine Nitrate Urine Bilirubin Urine Urobilinogen Ur Leukocyte Esterase Urine RBC (Auto) Urine Microscopic WBC Ur Squamous Epith Cells Influenza Typ A,B (EIA) 01/30/18 05:50 WBC RBC Hgb Hct MCV MCH MCHC RDW Plt Count MPV Neut % (Auto) Lymph % (Auto) Mason % (Auto) Eos % (Auto) Baso % (Auto) Neut # (Auto) Lymph # (Auto) Mason # (Auto) Eos # (Auto) Baso # (Auto) Neutrophils % (Manual) Band Neutrophils % Lymphocytes % (Manual) Monocytes % (Manual) Platelet Estimate Anisocytosis (manual) PT INR APTT pO2 VBG pH VBG pCO2 VBG HCO3 VBG Total CO2 VBG O2 Sat (Calc) VBG Base Excess VBG Potassium Glucose Lactate FiO2 Blood Gas Comments Crit Value Called To Crit Value Called By Crit Value Read Back Blood Gas Notified Time Sodium 135 Potassium 4.0 Chloride 104 Carbon Dioxide 25 Anion Gap 10 BUN 17 Creatinine 1.2 Est GFR ( Amer) > 60 Est GFR (Non-Af Amer) > 60 Random Glucose 105 Calcium 7.9 L Total Bilirubin 0.5 AST 24 ALT 47 Alkaline Phosphatase 85 Total Protein 5.6 L Albumin 2.8 L D Globulin 2.8 Albumin/Globulin Ratio 1.0 Lipase Venous Blood Potassium Urine Color Urine Clarity Urine pH Ur Specific [place] Urine Protein Urine Glucose (UA) Urine Ketones Urine Blood Urine Nitrate Urine Bilirubin Urine Urobilinogen Ur Leukocyte Esterase Urine RBC (Auto) Urine Microscopic WBC Ur Squamous Epith Cells Influenza Typ A,B (EIA) Microbiology 01/28/18 11:50 Blood-Venous Blood Culture - Preliminary NO GROWTH AFTER 48 HOURS 01/29/18 07:00 Sputum Induced Gram Stain - Final 01/29/18 07:00 Sputum Induced Sputum Culture - Preliminary NORMAL ORAL LOW 01/28/18 12:25 Urine,Clean Catch Urine Culture - Final No Growth (<1,000 CFU/ML) Accession No. : [id number] Patient Name / ID : EHNRY SAMAYOA / [id number] Exam Date : 01/28/2018 13:12:07 ( Approved ) Study Comment : Sex / Age : M / 57Y Creator : Kashmir Jackson MD Dictator : Kashmir Jackson MD Diagnostic Assistant : Hospice Bereavement Coordinator : Kashmir Jackson MD Approver2 : Report Date : 01/28/2018 13:54:57 My Comment : Date of service: 01/28/2018 HISTORY: possible admission COMPARISON: No prior. FINDINGS: LUNGS: Medial right lower lobe patchy consolidation. PLEURA: No significant pleural effusion identified, no pneumothorax apparent. CARDIOVASCULAR: Normal. OSSEOUS STRUCTURES: No significant abnormalities. VISUALIZED UPPER ABDOMEN: Normal. OTHER FINDINGS: None. IMPRESSION: Medial right lower lobe patchy consolidation. Accession No. : [id number] Patient Name / ID : HENRY SAMAYOA / [id number] Exam Date : 01/28/2018 12:13:25 ( Approved ) Study Comment : Sex / Age : M / 57Y Creator : Kashmir Jackson MD Dictator : Kashmir Jackson MD Diagnostic Assistant : Hospice Bereavement Coordinator : Kashmir Jackson MD Approver2 : Report Date : 01/28/2018 12:56:43 My Comment : Date of service: 01/28/2018 PROCEDURE: CT Abdomen and Pelvis without intravenous contrast HISTORY: rule out renal stone COMPARISON: CT scan of the abdomen and pelvis dated 10/27/2014. TECHNIQUE: Contiguous images were obtained from the domes of the diaphragms to the upper thighs without the administration of intravenous contrast. Oral contrast was not administered. Radiation dose: Total exam DLP = 539.2 mGy-cm. This CT exam was performed using one or more of the following dose reduction techniques: Automated exposure control, adjustment of the mA and/or kV according to patient size, and/or use of iterative reconstruction technique. FINDINGS: LOWER THORAX: Medial right lower lobe patchy consolidation. Heart size normal. No pleural effusion LIVER: Unremarkable. No gross lesion or ductal dilatation. GALLBLADDER AND BILE DUCTS: Unremarkable. PANCREAS: Unremarkable. No gross lesion or ductal dilatation. SPLEEN: Unremarkable. ADRENALS: Unremarkable. No mass. KIDNEYS AND URETERS: Punctate left upper pole calculus. No hydronephrosis. No solid mass. VASCULATURE: Unremarkable. No aortic aneurysm. BOWEL: Unremarkable. No obstruction. No gross mural thickening. APPENDIX: Appendicolith without appendiceal wall thickening. PERITONEUM: Small fat containing umbilical hernia. Small fat containing left inguinal hernia. No free fluid. No free air. LYMPH NODES: Unremarkable. No enlarged lymph nodes. BLADDER: Unremarkable. REPRODUCTIVE: Unremarkable. BONES: No acute fracture. OTHER FINDINGS: None. IMPRESSION: Right lower lobe pneumonia. Punctate nonobstructive left nephrolith. Redemonstration of calcified appendicolith without CT evidence for acute appendicitis. Assessment & Plan (1) Ureterolithiasis Status: Acute (2) Pneumonia Status: Acute - Assessment and Plan (Free Text) Assessment: A/P- 57 year old male with admitted with fever and dry cough and back pain found to have right sided pneumonia and left sided nephrolithiasis. afebrile normal wbc count sputum cx-prelim neg blood cx- neg Plan- await finalized sputum cx. check mycoplasma serology and legionella urine AG. agree with current antibiotics started by primary doc here namely zithromax and ceftriaxoine for CAP. advise to also check chest CT as well for better evaluation. all labs and imaging reviewed. case d/w patient at length and he verbalizes full understanding of all above. Thank you for allowing me to take part in the care of this patient.
--- NOTE | 2018-01-30 09:51 | CP.PCM.PN ---
<Luis Haywood - Last Filed: 01/30/18 11:24> Subjective - Date & Time of Evaluation Date of Evaluation: 01/30/18 Time of Evaluation: 09:48 - Subjective Subjective: Patient seen and examined this morning at beside, reports feeling better and reports less cough. Patient with fever last night. He denies sob or difficulty breathing, no chest pain or expectoration. Patient is ambulating. Objective - Vital Signs/Intake and Output Vital Signs (last 24 hours): Temp Pulse Resp BP Pulse Ox 99.6 F 59 L 19 127/69 95 01/30/18 08:29 01/30/18 08:29 01/30/18 08:29 01/30/18 08:29 01/30/18 08:29 - Medications Medications: Current Medications Acetaminophen (Tylenol 325mg Tab) 650 mg PO Q6 PRN PRN Reason: Fever >100.4 F Last Admin: 01/29/18 18:26 Dose: 650 mg Enoxaparin Sodium (Lovenox) 40 mg SC DAILY KAVITHA; Protocol Last Admin: 01/30/18 08:13 Dose: 40 mg Sodium Chloride (Sodium Chloride 0.9%) 1,000 mls @ 150 mls/hr IV .Q6H40M KAVITHA Last Admin: 01/30/18 08:14 Dose: 150 mls/hr Azithromycin 500 mg/ Sodium (Chloride) 250 mls @ 250 mls/hr IVPB DAILY KAVITHA; Protocol Last Admin: 01/30/18 08:13 Dose: 250 mls/hr Ceftriaxone Sodium 1 gm/ (Sodium Chloride) 100 mls @ 100 mls/hr IVPB DAILY KAVITHA; Protocol Last Admin: 01/30/18 08:13 Dose: 100 mls/hr Saccharomyces Boulardii (Florastor) 250 mg PO BID KAVITHA Last Admin: 01/30/18 08:12 Dose: 250 mg - Labs Labs: 01/30/18 05:50 01/30/18 05:50 PT 13.5 Seconds (9.8-13.1) H 01/28/18 12:25 INR 1.2 01/28/18 12:25 APTT 28.7 Seconds (25.6-37.1) 01/28/18 12:25 - Constitutional Appears: No Acute Distress - Head Exam Head Exam: NORMAL INSPECTION - ENT Exam ENT Exam: Mucous Membranes Moist - Respiratory Exam Respiratory Exam: Rales (scant at R lower lobe), NORMAL BREATHING PATTERN - Cardiovascular Exam Cardiovascular Exam: REGULAR RHYTHM, +S1, +S2. absent: Tachycardia - GI/Abdominal Exam GI & Abdominal Exam: Soft, Normal Bowel Sounds. absent: Distended, Tenderness - Extremities Exam Extremities Exam: absent: Calf Tenderness, Pedal Edema - Neurological Exam Neurological Exam: Alert, CN II-XII Intact, Oriented x3 - Skin Skin Exam: Dry, Warm Assessment and Plan - Assessment and Plan (Free Text) Assessment: 57 y/o man w/ PMH of nephrolithiasis presents to the ED w/ fever. Plan: RLL CAP Pneumonia - CXR: Medial right lower lobe patchy consolidation - Chest CT: Right lower lobe pneumonia. - Influenza serology negative - febrile last night. - WBC wnl - blood and urine culture negative - sputum cx pending - tylenol 650 PO Q6h prn for fever - azithromycin 500 mg IV daily (day 2) - rocephin 1 gm IV daily (day 2) - IVF NS 150 mL/hr - ID consult placed, recommends appreciated - Pulmonology consulted, recommends appreciated. Fever - febrile last night, 2/2 to CAP - afebrile now - tylenol 650 PO Q6h prn for fever - blood, urine cx negative DVT Prophylaxis - lovenox 40 mg SC daily <Gardenia Roe - Last Filed: 01/30/18 18:47> Objective - Vital Signs/Intake and Output Vital Signs (last 24 hours): Temp Pulse Resp BP Pulse Ox 99.1 F 55 L 18 143/89 97 01/30/18 16:08 01/30/18 16:08 01/30/18 16:08 01/30/18 16:08 01/30/18 16:08 - Medications Medications: Current Medications Acetaminophen (Tylenol 325mg Tab) 650 mg PO Q6 PRN PRN Reason: Fever >100.4 F Last Admin: 01/29/18 18:26 Dose: 650 mg Enoxaparin Sodium (Lovenox) 40 mg SC DAILY KAVITHA; Protocol Last Admin: 01/30/18 08:13 Dose: 40 mg Azithromycin 500 mg/ Sodium (Chloride) 250 mls @ 250 mls/hr IVPB DAILY KAVITHA; Protocol Last Admin: 01/30/18 08:13 Dose: 250 mls/hr Ceftriaxone Sodium 1 gm/ (Sodium Chloride) 100 mls @ 100 mls/hr IVPB DAILY KAVITHA; Protocol Last Admin: 01/30/18 08:13 Dose: 100 mls/hr Saccharomyces Boulardii (Florastor) 250 mg PO BID KAVITHA Last Admin: 01/30/18 16:00 Dose: 250 mg - Labs Labs: 01/30/18 05:50 01/30/18 05:50 PT 13.5 Seconds (9.8-13.1) H 01/28/18 12:25 INR 1.2 01/28/18 12:25 APTT 28.7 Seconds (25.6-37.1) 01/28/18 12:25 Attending/Attestation - Attestation I have personally seen and examined this patient.: Yes I have fully participated in the care of the patient.: Yes I have reviewed all pertinent clinical information, including history, physical exam and plan: Yes Notes (Text): Pt continued to have fever last night. We will keep pt in hospital and continue IV antibiotics. Will consult ID for further mgt Sputum Gram stain : few gram + cocci clusters, few Gram neg rods, few gram + bacilli
--- NOTE | 2018-01-30 12:44 | RAD ---
Date of service: 01/30/2018 HISTORY: PNEUMONIA COMPARISON: Chest radiograph dated 01/28/2018. TECHNIQUE: Chest PA and lateral FINDINGS: LUNGS: Medial right lower lobe patchy consolidation. PLEURA: No significant pleural effusion identified. No pneumothorax apparent. CARDIOVASCULAR: Normal. OSSEOUS STRUCTURES: No significant abnormalities. VISUALIZED UPPER ABDOMEN: Normal. OTHER FINDINGS: None. IMPRESSION: Similar appearance of medial right lower lobe patchy consolidation
--- NOTE | 2018-01-30 18:44 | PQF ---
PROVIDER RESPONSE TEXT: Right Lower Lobe Pneumonia likely bacterial REVIEWER QUERY TEXT: Pneumonia Specificity CAP Pneumonia is documented in the Medical Record. ( CAP represents the method of acquisition and not the specific type of pneumonia. ) Please specify AFTER WORKUP the type of pneumonia and the causative organism (includes probable or s uspected) Such as: Type: -- Aspiration pneumonia (please also specify the aspirate) -- Bacterial (please document suspected or probable organism) -- Bronchopneumonia (please document suspected or probable organism) -- Interstitial pneumonia -- Organizing pneumonia / BOOP -- Pneumonia with influenza, more flu, or H1N1 flu -- RSV -- Tuberculosis, pulmonary -- Viral -- Other, please specify The patient's Clinical Indicators include: Admitted with fever of 102, dry cough, chills night sweats and R sided lower back radiating down the R leg. . Documentation of CAP Pneumonia. ( CAP represents the method of acquisition and not the specific type of pneumonia. ) PMH: Nephrolithiasis with stent insertion CXR: Medial RLL patchy consolidation. WBC 10.8 with a L shift, SPUTUM CS obtained pending results Rx: Rocephin, Zithromax Query created by: Miranda Grubbs on 01/30/2018 6:45 AM Electronically signed by: Gardenia Roe MD 01/30/2018 6:42 PM
--- NOTE | 2018-01-30 20:51 | CON ---
DATE: 01/30/2018 HISTORY OF PRESENT ILLNESS: Mr. Jones is a 57-year-old male who was referred for pulmonary consultation by Dr. Guan. He was admitted because of back pain, and a chest x-ray finding of pneumonia. He indicates that he had been sick for a few days prior to presentation. He had sought help at an center and also with his chiropractor and was finally referred by his primary care physician to the emergency room where he was diagnosed with pneumonia. PAST MEDICAL HISTORY: He has an unremarkable past medical history. FAMILY HISTORY: Noncontributory. SOCIAL HISTORY: He is . 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 PHYSICAL EXAMINATION: GENERAL: The patient is alert and oriented, appears to be much more comfortable at present. VITAL SIGNS: Remarkable for blood pressure of 127/69 with a pulse of 60, respiratory rate 18. He is febrile. O2 sat 95% on room air. SKIN: Shows fair turgor. Pupils are equal and reactive to light and accommodation. Mouth shows fair hygiene. JVP flat. LUNGS: Clear. HEART: Regular. No murmurs or gallop. ABDOMEN: Soft, nontender. No organomegaly. EXTREMITIES: Shows no edema or cyanosis. CENTRAL NERVOUS SYSTEM: Grossly intact. LABORATORY DATA: Remarkable for WBC of 8.7, hemoglobin 12.4, platelet count 164,000. Sodium of 135, potassium 4, BUN of 17, creatinine 1.2, AST 24, ALT 47. Influenza A and B negative. Chest x-ray is remarkable for pneumonia right base. IMPRESSION: Pneumonia, right lung. PLAN: Blood cultures, sputum cultures IV antibiotics, oxygen. Infectious disease consult already done. We will obtain repeat chest x-ray to evaluate progress of pneumonia. Further therapy will depend on findings. Long Garcia MD
[2018-01-31 07:07] LABS: BASO % 0.5 % (0.0-2.0); EOS # 0.3 K/uL (0.0-0.7); EOS % 4.4 % (0.0-4.0); HEMOGLOBIN 12.4 g/dL (12.0-18.0); LYMPH % 26.6 % (20.0-40.0); MEAN CELL VOLUME 83.3 fl (80.0-94.0); MEAN CORPUSCULAR HEMOGLOBIN 27.9 pg (27.0-31.0); MEAN CORPUSCULAR HGB CONC 33.5 g/dL (33.0-37.0); MEAN PLATELET VOLUME 10.3 fl (7.2-11.7); MONO # 0.9 K/uL (0.0-0.8); MONO % 11.6 % (0.0-10.0); NEUT # 4.2 K/uL (1.8-7.0); NEUT % 56.9 % (50.0-75.0); NRBC % 0.1 % (0.0-0.0); RBC 4.44 Mil/uL (4.40-5.90); RED CELL DISTRIBUTION WIDTH 15.1 % (11.5-14.5); WHITE BLOOD COUNT 7.5 K/uL (4.8-10.8)
[2018-01-31] MEDS: Enoxaparin 40 mg Syringe SC SCH (08:05)
[2018-01-31] MEDS: Azithromycin 500 MG in Sodium Chloride 0.9% 250 ML IVPB SCH (08:05)
[2018-01-31] MEDS: Saccharomyces Boulardi 250 mg Cap PO SCH ×2 (08:05→16:23)
[2018-01-31] MEDS ORDERED: Promethazine 12.5 mg/10 ml Syrup PO PRN (09:35)
--- NOTE | 2018-01-31 09:35 | CP.PCM.PN ---
Subjective - Date & Time of Evaluation Date of Evaluation: 01/31/18 Time of Evaluation: 09:35 - Subjective Subjective: SOB AND BACK PAIN IMPROVED COUGH PRESEN WITH GREEN SPUTUM Objective - Vital Signs/Intake and Output Vital Signs (last 24 hours): Temp Pulse Resp BP Pulse Ox 99.1 F 51 L 20 122/76 94 L 01/31/18 08:53 01/31/18 08:53 01/31/18 08:53 01/31/18 08:53 01/31/18 08:53 - Medications Medications: Current Medications Acetaminophen (Tylenol 325mg Tab) 650 mg PO Q6 PRN PRN Reason: Fever >100.4 F Last Admin: 01/29/18 18:26 Dose: 650 mg Enoxaparin Sodium (Lovenox) 40 mg SC DAILY KAVITHA; Protocol Last Admin: 01/31/18 08:05 Dose: 40 mg Azithromycin 500 mg/ Sodium (Chloride) 250 mls @ 250 mls/hr IVPB DAILY KAVITHA; Protocol Last Admin: 01/31/18 08:05 Dose: 250 mls/hr Ceftriaxone Sodium 1 gm/ (Sodium Chloride) 100 mls @ 100 mls/hr IVPB DAILY KAVITHA; Protocol Last Admin: 01/31/18 08:06 Dose: 100 mls/hr Saccharomyces Boulardii (Florastor) 250 mg PO BID KAVITHA Last Admin: 01/31/18 08:05 Dose: 250 mg - Labs Labs: 01/31/18 06:51 01/30/18 05:50 PT 13.5 Seconds (9.8-13.1) H 01/28/18 12:25 INR 1.2 01/28/18 12:25 APTT 28.7 Seconds (25.6-37.1) 01/28/18 12:25 - Constitutional Appears: No Acute Distress - Head Exam Head Exam: ATRAUMATIC, NORMAL INSPECTION, NORMOCEPHALIC - Eye Exam Eye Exam: EOMI, Normal appearance, PERRL Pupil Exam: NORMAL ACCOMODATION, PERRL - ENT Exam ENT Exam: Mucous Membranes Moist, Normal Exam - Neck Exam Neck Exam: Full ROM, Normal Inspection. absent: Lymphadenopathy - Respiratory Exam Respiratory Exam: Prolonged Expiratory Phase, Rales, NORMAL BREATHING PATTERN - Cardiovascular Exam Cardiovascular Exam: REGULAR RHYTHM, +S1, +S2. absent: Murmur - GI/Abdominal Exam GI & Abdominal Exam: Soft, Normal Bowel Sounds. absent: Tenderness - Rectal Exam Rectal Exam: NORMAL INSPECTION - Extremities Exam Extremities Exam: Full ROM, Normal Capillary Refill, Normal Inspection. absent: Joint Swelling, Pedal Edema - Back Exam Back Exam: NORMAL INSPECTION - Neurological Exam Neurological Exam: Alert, Awake, CN II-XII Intact, Normal Gait, Oriented x3 - Psychiatric Exam Psychiatric exam: Normal Affect, Normal Mood - Skin Skin Exam: Dry, Intact, Normal Color, Warm Assessment and Plan - Assessment and Plan (Free Text) Assessment: PNEUMONIA Plan: CONTINUE PRESENT RX REPEAT CXR IN AM
--- NOTE | 2018-01-31 10:10 | CP.PCM.PN ---
Subjective - Date & Time of Evaluation Date of Evaluation: 01/31/18 Time of Evaluation: 10:10 - Subjective Subjective: ID Note- Patient seen and examined today. Pt. states he feels much better and his cough is much less and his back pain has resolved. denies any chills or fever. Objective - Vital Signs/Intake and Output Vital Signs (last 24 hours): Temp Pulse Resp BP Pulse Ox 99.1 F 51 L 20 122/76 94 L 01/31/18 08:53 01/31/18 08:53 01/31/18 08:53 01/31/18 08:53 01/31/18 08:53 - Medications Medications: Current Medications Acetaminophen (Tylenol 325mg Tab) 650 mg PO Q6 PRN PRN Reason: Fever >100.4 F Last Admin: 01/29/18 18:26 Dose: 650 mg Enoxaparin Sodium (Lovenox) 40 mg SC DAILY KAVITHA; Protocol Last Admin: 01/31/18 08:05 Dose: 40 mg Azithromycin 500 mg/ Sodium (Chloride) 250 mls @ 250 mls/hr IVPB DAILY KAVITHA; Protocol Last Admin: 01/31/18 08:05 Dose: 250 mls/hr Ceftriaxone Sodium 1 gm/ (Sodium Chloride) 100 mls @ 100 mls/hr IVPB DAILY KAVITHA; Protocol Last Admin: 01/31/18 08:06 Dose: 100 mls/hr Promethazine HCl (Phenergan Syrup) 12.5 mg PO Q6 PRN PRN Reason: Cough Saccharomyces Boulardii (Florastor) 250 mg PO BID KAVITHA Last Admin: 01/31/18 08:05 Dose: 250 mg - Labs Labs: - Additional Findings Additional findings: Constitutional Appears: Non-toxic, No Acute Distress - Head Exam Head Exam: ATRAUMATIC - Eye Exam Eye Exam: EOMI, PERRL - ENT Exam ENT Exam: Normal Oropharynx - Neck Exam Neck exam: Positive for: Full Rom - Respiratory Exam Respiratory Exam: NORMAL BREATHING PATTERN Additional comments: still has some mild crackles at right lung base No wheezing - Cardiovascular Exam Cardiovascular Exam: RRR, +S1, +S2 - GI/Abdominal Exam GI & Abdominal Exam: Normal Bowel Sounds, Soft Additional comments: NT, Nd no cva tenderness b/l - Extremities Exam Extremities exam: Positive for: normal inspection - Neurological Exam Neurological exam: Alert, Oriented x 3 Laboratory Results - last 72 hr 01/28/18 01/28/18 01/28/18 12:25 12:25 12:25 WBC 10.8 D RBC 5.22 Hgb 14.6 Hct 43.8 MCV 84.0 MCH 28.0 MCHC 33.3 RDW 14.9 H Plt Count 162 MPV 10.6 Neut % (Auto) 80.8 H Lymph % (Auto) 8.3 L Drew % (Auto) 10.7 H Eos % (Auto) 0.1 Baso % (Auto) 0.1 Neut # (Auto) 8.7 H Lymph # (Auto) 0.9 L Drew # (Auto) 1.2 H Eos # (Auto) 0.0 Baso # (Auto) 0.0 Neutrophils % (Manual) 79 H Band Neutrophils % 1 Lymphocytes % (Manual) 11 L Monocytes % (Manual) 9 Platelet Estimate Normal Anisocytosis (manual) Slight PT 13.5 H INR 1.2 APTT 28.7 pO2 VBG pH VBG pCO2 VBG HCO3 VBG Total CO2 VBG O2 Sat (Calc) VBG Base Excess VBG Potassium Glucose Lactate FiO2 Blood Gas Comments Crit Value Called To Crit Value Called By Crit Value Read Back Blood Gas Notified Time Sodium 137 Potassium 4.0 Chloride 99 Carbon Dioxide 31 H Anion Gap 11 BUN 16 Creatinine 1.0 Est GFR ( Amer) > 60 Est GFR (Non-Af Amer) > 60 Random Glucose 114 H Calcium 9.2 Total Bilirubin 0.7 AST 40 ALT 64 Alkaline Phosphatase 104 Total Protein 7.6 Albumin 4.0 Globulin 3.5 Albumin/Globulin Ratio 1.1 Lipase 24 Venous Blood Potassium Urine Color Urine Clarity Urine pH Ur Specific [place] Urine Protein Urine Glucose (UA) Urine Ketones Urine Blood Urine Nitrate Urine Bilirubin Urine Urobilinogen Ur Leukocyte Esterase Urine RBC (Auto) Urine Microscopic WBC Ur Squamous Epith Cells Influenza Typ A,B (EIA) Ur L.pneumophila Ag 01/28/18 01/28/18 01/28/18 12:25 14:15 17:56 WBC RBC Hgb Hct MCV MCH MCHC RDW Plt Count MPV Neut % (Auto) Lymph % (Auto) Drew % (Auto) Eos % (Auto) Baso % (Auto) Neut # (Auto) Lymph # (Auto) Drew # (Auto) Eos # (Auto) Baso # (Auto) Neutrophils % (Manual) Band Neutrophils % Lymphocytes % (Manual) Monocytes % (Manual) Platelet Estimate Anisocytosis (manual) PT INR APTT pO2 23 L VBG pH 7.44 H VBG pCO2 38 L VBG HCO3 24.8 VBG Total CO2 27.0 VBG O2 Sat (Calc) 50.7 VBG Base Excess 1.7 VBG Potassium 3.8 Glucose 170 H Lactate 2.4 H FiO2 21.0 Blood Gas Comments Lac=2.4 Crit Value Called To soham Calvert Crit Value Called By 22 Crit Value Read Back Y Blood Gas Notified Time 1421 Sodium 131.0 L Potassium Chloride 100.0 Carbon Dioxide Anion Gap BUN Creatinine Est GFR ( Amer) Est GFR (Non-Af Amer) Random Glucose Calcium Total Bilirubin AST ALT Alkaline Phosphatase Total Protein Albumin Globulin Albumin/Globulin Ratio Lipase Venous Blood Potassium 3.8 Urine Color Yellow Urine Clarity Slighty-cloudy Urine pH 5.0 Ur Specific [place] 1.030 Urine Protein 30 Urine Glucose (UA) Neg Urine Ketones Negative Urine Blood Negative Urine Nitrate Negative Urine Bilirubin Negative Urine Urobilinogen 0.2-1.0 Ur Leukocyte Esterase Neg Urine RBC (Auto) 10 H Urine Microscopic WBC 3 Ur Squamous Epith Cells 1 Influenza Typ A,B (EIA) Negative for flu a/b Ur L.pneumophila Ag 01/29/18 01/29/18 01/30/18 06:00 06:00 05:50 WBC 9.6 8.7 RBC 4.61 4.35 L Hgb 13.2 12.4 Hct 38.6 36.2 MCV 83.7 83.2 MCH 28.7 28.5 MCHC 34.3 34.2 RDW 15.0 H 15.4 H Plt Count 145 164 MPV 10.2 10.6 Neut % (Auto) 71.5 66.5 Lymph % (Auto) 14.0 L 16.4 L Drew % (Auto) 13.2 H 14.8 H Eos % (Auto) 0.5 1.9 Baso % (Auto) 0.8 0.4 Neut # (Auto) 6.8 5.8 Lymph # (Auto) 1.3 1.4 Drew # (Auto) 1.3 H 1.3 H Eos # (Auto) 0.1 0.2 Baso # (Auto) 0.1 0.0 Neutrophils % (Manual) Band Neutrophils % Lymphocytes % (Manual) Monocytes % (Manual) Platelet Estimate Anisocytosis (manual) PT INR APTT pO2 VBG pH VBG pCO2 VBG HCO3 VBG Total CO2 VBG O2 Sat (Calc) VBG Base Excess VBG Potassium Glucose Lactate FiO2 Blood Gas Comments Crit Value Called To Crit Value Called By Crit Value Read Back Blood Gas Notified Time Sodium 137 Potassium 4.6 Chloride 107 Carbon Dioxide 27 Anion Gap 8 L BUN 17 Creatinine 1.2 Est GFR ( Amer) > 60 Est GFR (Non-Af Amer) > 60 Random Glucose 114 H Calcium 8.0 L Total Bilirubin AST ALT Alkaline Phosphatase Total Protein Albumin Globulin Albumin/Globulin Ratio Lipase Venous Blood Potassium Urine Color Urine Clarity Urine pH Ur Specific [place] Urine Protein Urine Glucose (UA) Urine Ketones Urine Blood Urine Nitrate Urine Bilirubin Urine Urobilinogen Ur Leukocyte Esterase Urine RBC (Auto) Urine Microscopic WBC Ur Squamous Epith Cells Influenza Typ A,B (EIA) Ur L.pneumophila Ag 01/30/18 01/30/18 01/31/18 05:50 15:40 06:51 WBC 7.5 RBC 4.44 Hgb 12.4 Hct 37.0 MCV 83.3 MCH 27.9 MCHC 33.5 RDW 15.1 H Plt Count 195 MPV 10.3 Neut % (Auto) 56.9 Lymph % (Auto) 26.6 Drew % (Auto) 11.6 H Eos % (Auto) 4.4 H Baso % (Auto) 0.5 Neut # (Auto) 4.2 Lymph # (Auto) 2.0 Drew # (Auto) 0.9 H Eos # (Auto) 0.3 Baso # (Auto) 0.0 Neutrophils % (Manual) Band Neutrophils % Lymphocytes % (Manual) Monocytes % (Manual) Platelet Estimate Anisocytosis (manual) PT INR APTT pO2 VBG pH VBG pCO2 VBG HCO3 VBG Total CO2 VBG O2 Sat (Calc) VBG Base Excess VBG Potassium Glucose Lactate FiO2 Blood Gas Comments Crit Value Called To Crit Value Called By Crit Value Read Back Blood Gas Notified Time Sodium 135 Potassium 4.0 Chloride 104 Carbon Dioxide 25 Anion Gap 10 BUN 17 Creatinine 1.2 Est GFR ( Amer) > 60 Est GFR (Non-Af Amer) > 60 Random Glucose 105 Calcium 7.9 L Total Bilirubin 0.5 AST 24 ALT 47 Alkaline Phosphatase 85 Total Protein 5.6 L Albumin 2.8 L D Globulin 2.8 Albumin/Globulin Ratio 1.0 Lipase Venous Blood Potassium Urine Color Urine Clarity Urine pH Ur Specific [place] Urine Protein Urine Glucose (UA) Urine Ketones Urine Blood Urine Nitrate Urine Bilirubin Urine Urobilinogen Ur Leukocyte Esterase Urine RBC (Auto) Urine Microscopic WBC Ur Squamous Epith Cells Influenza Typ A,B (EIA) Ur L.pneumophila Ag Negative Microbiology 01/28/18 11:50 Blood-Venous Blood Culture - Preliminary NO GROWTH AFTER 3 DAYS 01/29/18 07:00 Sputum Induced Gram Stain - Final 01/29/18 07:00 Sputum Induced Sputum Culture - Final NORMAL ORAL LOW 01/28/18 12:25 Urine,Clean Catch Urine Culture - Final No Growth (<1,000 CFU/ML) Accession No. : [id number] Patient Name / ID : HENRY SAMAYOA / [id number] Exam Date : 01/30/2018 12:19:48 ( Approved ) Study Comment : Sex / Age : M / 57Y Creator : Kashmir Jackson MD Dictator : Kashmir Jackson MD Batch Freezer Operator : Thermo Cementing Folder Operator : Kashmir Jackson MD Approver2 : Report Date : 01/30/2018 12:38:01 My Comment : Date of service: 01/30/2018 HISTORY: PNEUMONIA COMPARISON: Chest radiograph dated 01/28/2018. TECHNIQUE: Chest PA and lateral FINDINGS: LUNGS: Medial right lower lobe patchy consolidation. PLEURA: No significant pleural effusion identified. No pneumothorax apparent. CARDIOVASCULAR: Normal. OSSEOUS STRUCTURES: No significant abnormalities. VISUALIZED UPPER ABDOMEN: Normal. OTHER FINDINGS: None. IMPRESSION: Similar appearance of medial right lower lobe patchy consolidation Assessment and Plan (1) Ureterolithiasis Status: Acute (2) Pneumonia Status: Acute - Assessment and Plan (Free Text) Assessment: A/P- 57 year old male with admitted with fever and dry cough and back pain found to have right sided pneumonia and left sided nephrolithiasis. afebrile normal wbc count sputum cx- neg blood cx- neg urine cx- neg urine legionella Ag- neg Samanta await mycoplasma serology. continue with IV zithromax and ceftriaxoine for CAP. day #3 continue for one more day. can be switched to oral abx tomm if he remains afebrile. advised him to f/u with his PCP and he can f/u with me as well in 1 week after d/c from hospital. Patient verbalizes full understanding of all above and agrees with above plan of care. All above also d/w .
--- NOTE | 2018-01-31 11:13 | CP.PCM.PN ---
<Luis Haywood - Last Filed: 01/31/18 11:21> Subjective - Date & Time of Evaluation Date of Evaluation: 01/31/18 Time of Evaluation: 08:03 - Subjective Subjective: Patient seen and examined today during rounding, patient seating on chair reports feeling better no sob though less cough. Afebrile (last fever 2 days ago). Denies chest pain, chills, palpitations. No urinary symptoms. Objective - Vital Signs/Intake and Output Vital Signs (last 24 hours): Temp Pulse Resp BP Pulse Ox 99.1 F 51 L 20 122/76 94 L 01/31/18 08:53 01/31/18 08:53 01/31/18 08:53 01/31/18 08:53 01/31/18 08:53 - Medications Medications: Current Medications Acetaminophen (Tylenol 325mg Tab) 650 mg PO Q6 PRN PRN Reason: Fever >100.4 F Last Admin: 01/29/18 18:26 Dose: 650 mg Enoxaparin Sodium (Lovenox) 40 mg SC DAILY KAVITHA; Protocol Last Admin: 01/31/18 08:05 Dose: 40 mg Azithromycin 500 mg/ Sodium (Chloride) 250 mls @ 250 mls/hr IVPB DAILY KAVITHA; Protocol Last Admin: 01/31/18 08:05 Dose: 250 mls/hr Ceftriaxone Sodium 1 gm/ (Sodium Chloride) 100 mls @ 100 mls/hr IVPB DAILY KAVITHA; Protocol Last Admin: 01/31/18 08:06 Dose: 100 mls/hr Promethazine HCl (Phenergan Syrup) 12.5 mg PO Q6 PRN PRN Reason: Cough Saccharomyces Boulardii (Florastor) 250 mg PO BID KAVITHA Last Admin: 01/31/18 08:05 Dose: 250 mg - Labs Labs: 01/31/18 06:51 01/30/18 05:50 PT 13.5 Seconds (9.8-13.1) H 01/28/18 12:25 INR 1.2 01/28/18 12:25 APTT 28.7 Seconds (25.6-37.1) 01/28/18 12:25 - Constitutional Appears: No Acute Distress - Eye Exam Eye Exam: Normal appearance - Respiratory Exam Respiratory Exam: Rales (RLL). absent: Accessory Muscle Use, Decreased Breath Sounds - Cardiovascular Exam Cardiovascular Exam: REGULAR RHYTHM, +S1, +S2 - GI/Abdominal Exam GI & Abdominal Exam: Soft. absent: Distended, Tenderness - Extremities Exam Extremities Exam: absent: Calf Tenderness, Pedal Edema - Neurological Exam Neurological Exam: Alert, Oriented x3 - Skin Skin Exam: Dry, Intact, Warm Assessment and Plan - Assessment and Plan (Free Text) Assessment: 57 y/o man w/ PMH of nephrolithiasis presents to the ED w/ fever. Plan: RLL CAP Pneumonia - Repeat CXR yesterday: similar appearance of medial right lower lobe patchy consolidation - Influenza serology negative - Legionella Pneum AG negative - Mycoplasma AB pending. - afebrile, no leukocytosis - blood and urine culture negative - sputum cx negative - tylenol 650 PO Q6h prn for fever - azithromycin 500 mg IV daily (day 3) - rocephin 1 gm IV daily (day 3) - phenergan prn - IVF NS 150 mL/hr - ID consult placed, recommends appreciated - Pulmonology consulted, recommends appreciated. DVT Prophylaxis - lovenox 40 mg SC daily <Gardenia Roe - Last Filed: 01/31/18 16:10> Objective - Vital Signs/Intake and Output Vital Signs (last 24 hours): Temp Pulse Resp BP Pulse Ox 98 F 68 18 125/75 97 01/31/18 16:03 01/31/18 16:03 01/31/18 16:03 01/31/18 16:03 01/31/18 16:03 - Medications Medications: Current Medications Acetaminophen (Tylenol 325mg Tab) 650 mg PO Q6 PRN PRN Reason: Fever >100.4 F Last Admin: 01/29/18 18:26 Dose: 650 mg Enoxaparin Sodium (Lovenox) 40 mg SC DAILY KAVITHA; Protocol Last Admin: 01/31/18 08:05 Dose: 40 mg Azithromycin 500 mg/ Sodium (Chloride) 250 mls @ 250 mls/hr IVPB DAILY KAVITHA; P rotocol Last Admin: 01/31/18 08:05 Dose: 250 mls/hr Ceftriaxone Sodium 1 gm/ (Sodium Chloride) 100 mls @ 100 mls/hr IVPB DAILY KAVITHA; Protocol Last Admin: 01/31/18 08:06 Dose: 100 mls/hr Promethazine HCl (Phenergan Syrup) 12.5 mg PO Q6 PRN PRN Reason: Cough Saccharomyces Boulardii (Florastor) 250 mg PO BID KAVITHA Last Admin: 01/31/18 08:05 Dose: 250 mg - Labs Labs: 01/31/18 06:51 01/30/18 05:50 PT 13.5 Seconds (9.8-13.1) H 01/28/18 12:25 INR 1.2 01/28/18 12:25 APTT 28.7 Seconds (25.6-37.1) 01/28/18 12:25 Attending/Attestation - Attestation I have personally seen and examined this patient.: Yes I have fully participated in the care of the patient.: Yes I have reviewed all pertinent clinical information, including history, physical exam and plan: Yes Notes (Text): Pt still with cough. Temp 99.6 Rpt CXR : no improvement in PNA Discussed case with Pulmonary - Dr Garcia - rec 1 more day of IV antibiotics, rpt CXR in am Discussed case with ID Dr Hancock
[2018-02-01 06:41] LABS: BASO % 0.4 % (0.0-2.0); EOS # 0.4 K/uL (0.0-0.7); EOS % 5.3 % (0.0-4.0); HEMOGLOBIN 12.9 g/dL (12.0-18.0); LYMPH # 1.8 K/uL (1.0-4.3); LYMPH % 23.5 % (20.0-40.0); MEAN CELL VOLUME 84.1 fl (80.0-94.0); MEAN CORPUSCULAR HEMOGLOBIN 27.9 pg (27.0-31.0); MEAN CORPUSCULAR HGB CONC 33.2 g/dL (33.0-37.0); MEAN PLATELET VOLUME 9.9 fl (7.2-11.7); MONO # 0.8 K/uL (0.0-0.8); MONO % 10.4 % (0.0-10.0); NEUT # 4.7 K/uL (1.8-7.0); NEUT % 60.4 % (50.0-75.0); RBC 4.61 Mil/uL (4.40-5.90); RED CELL DISTRIBUTION WIDTH 15.3 % (11.5-14.5); WHITE BLOOD COUNT 7.9 K/uL (4.8-10.8)
[2018-02-01 06:55] LABS: BLOOD UREA NITROGEN 16 mg/dl (9-20); CALCIUM 8.7 mg/dL (8.4-10.2); GFR NON-AFRICAN AMERICAN > 60
[2018-02-01] MEDS: Azithromycin 500 MG in Sodium Chloride 0.9% 250 ML IVPB SCH (08:27)
[2018-02-01] MEDS: Enoxaparin 40 mg Syringe SC SCH (08:27)
[2018-02-01] MEDS: Saccharomyces Boulardi 250 mg Cap PO SCH (08:28)
[2018-02-01 08:51] VITALS: BP 129/80; PULSE 50; RESP 18; TEMP 98.4
--- NOTE | 2018-02-01 10:05 | CP.PCM.DIS ---
Provider - Provider Date of Admission: 01/28/18 16:29 Attending physician: José Luis Guan MD Primary care physician: Rakesh Harper MD Consults: ID Dr Hancock Pulmonology: Dr Garcia Time Spent in preparation of Discharge (in minutes): 30 Diagnosis - Discharge Diagnosis (1) Pneumonia Status: Resolved (2) Fever Status: Acute (3) Ureterolithiasis Status: Chronic Hospital Course - Lab Results Lab Results: Micro Results 01/28/18 11:50 Blood-Venous Blood Culture - Preliminary NO GROWTH AFTER 3 DAYS 01/29/18 07:00 Sputum Induced Gram Stain - Final 01/29/18 07:00 Sputum Induced Sputum Culture - Final NORMAL ORAL LOW 01/28/18 12:25 Urine,Clean Catch Urine Culture - Final No Growth (<1,000 CFU/ML) Most Recent Lab Values WBC 7.9 K/uL (4.8-10.8) 02/01/18 05:55 RBC 4.61 Mil/uL (4.40-5.90) 02/01/18 05:55 Hgb 12.9 g/dL (12.0-18.0) 02/01/18 05:55 Hct 38.8 % (35.0-51.0) 02/01/18 05:55 MCV 84.1 fl (80.0-94.0) 02/01/18 05:55 MCH 27.9 pg (27.0-31.0) 02/01/18 05:55 MCHC 33.2 g/dL (33.0-37.0) 02/01/18 05:55 RDW 15.3 % (11.5-14.5) H 02/01/18 05:55 Plt Count 236 K/uL (130-400) 02/01/18 05:55 MPV 9.9 fl (7.2-11.7) 02/01/18 05:55 Neut % (Auto) 60.4 % (50.0-75.0) 02/01/18 05:55 Lymph % (Auto) 23.5 % (20.0-40.0) 02/01/18 05:55 [place] % (Auto) 10.4 % (0.0-10.0) H 02/01/18 05:55 Eos % (Auto) 5.3 % (0.0-4.0) H 02/01/18 05:55 Baso % (Auto) 0.4 % (0.0-2.0) 02/01/18 05:55 Neut # (Auto) 4.7 K/uL (1.8-7.0) 02/01/18 05:55 Lymph # (Auto) 1.8 K/uL (1.0-4.3) 02/01/18 05:55 [place] # (Auto) 0.8 K/uL (0.0-0.8) 02/01/18 05:55 Eos # (Auto) 0.4 K/uL (0.0-0.7) 02/01/18 05:55 Baso # (Auto) 0.0 K/uL (0.0-0.2) 02/01/18 05:55 Neutrophils % (Manual) 79 % (42-75) H 01/28/18 12:25 Band Neutrophils % 1 % (0-2) 01/28/18 12:25 Lymphocytes % (Manual) 11 % (20-50) L 01/28/18 12:25 Monocytes % (Manual) 9 % (0-10) 01/28/18 12:25 Platelet Estimate Normal (NORMAL) 01/28/18 12:25 Anisocytosis (manual) Slight 01/28/18 12:25 PT 13.5 Seconds (9.8-13.1) H 01/28/18 12:25 INR 1.2 01/28/18 12:25 APTT 28.7 Seconds (25.6-37.1) 01/28/18 12:25 pO2 23 mm/Hg (30-55) L 01/28/18 14:15 VBG pH 7.44 (7.32-7.43) H 01/28/18 14:15 VBG pCO2 38 mmHg (40-60) L 01/28/18 14:15 VBG HCO3 24.8 mmol/L 01/28/18 14:15 VBG Total CO2 27.0 mmol/L (22-28) 01/28/18 14:15 VBG O2 Sat (Calc) 50.7 % (40-65) 01/28/18 14:15 VBG Base Excess 1.7 mmol/L (0.0-2.0) 01/28/18 14:15 VBG Potassium 3.8 mmol/L (3.6-5.2) 01/28/18 14:15 Sodium 131.0 mmol/L (132-148) L 01/28/18 14:15 Chloride 100.0 mmol/L (98-107) 01/28/18 14:15 Glucose 170 mg/dL (75-110) H 01/28/18 14:15 Lactate 2.4 mmol/L (0.7-2.1) H 01/28/18 14:15 FiO2 21.0 % 01/28/18 14:15 Blood Gas Comments Lac=2.4 01/28/18 14:15 Crit Value Called To soham Calvert 01/28/18 14:15 Crit Value Called By 01/28/18 14:15 Crit Value Read Back Y 01/28/18 14:15 Blood Gas Notified Time 1421 01/28/18 14:15 Sodium 140 mmol/l (132-148) 02/01/18 05:55 Potassium 5.1 MMOL/L (3.6-5.0) H 02/01/18 05:55 Chloride 105 mmol/L (98-107) 02/01/18 05:55 Carbon Dioxide 30 mmol/L (22-30) 02/01/18 05:55 Anion Gap 10 (10-20) 02/01/18 05:55 BUN 16 mg/dl (9-20) 02/01/18 05:55 Creatinine 1.2 mg/dl (0.8-1.5) 02/01/18 05:55 Est GFR ( Amer) > 60 02/01/18 05:55 Est GFR (Non-Af Amer) > 60 02/01/18 05:55 Random Glucose 102 mg/dL (75-110) 02/01/18 05:55 Calcium 8.7 mg/dL (8.4-10.2) 02/01/18 05:55 Total Bilirubin 0.5 mg/dl (0.2-1.3) 01/30/18 05:50 AST 24 U/L (17-59) 01/30/18 05:50 ALT 47 U/L (21-72) 01/30/18 05:50 Alkaline Phosphatase 85 U/L (38-126) 01/30/18 05:50 Total Protein 5.6 G/DL (6.3-8.2) L 01/30/18 05:50 Albumin 2.8 g/dL (3.5-5.0) L D 01/30/18 05:50 Globulin 2.8 gm/dL (2.2-3.9) 01/30/18 05:50 Albumin/Globulin Ratio 1.0 (1.0-2.1) 01/30/18 05:50 Lipase 24 U/L (23-300) 01/28/18 12:25 Venous Blood Potassium 3.8 mmol/L (3.6-5.2) 01/28/18 14:15 Urine Color Yellow (YELLOW) 01/28/18 12:25 Urine Clarity Slighty-cloudy (Clear) 01/28/18 12:25 Urine pH 5.0 (5.0-8.0) 01/28/18 12:25 Ur Specific [place] 1.030 (1.003-1.030) 01/28/18 12:25 Urine Protein 30 mg/dL (NEGATIVE) 01/28/18 12:25 Urine Glucose (UA) Neg mg/dL (Normal) 01/28/18 12:25 Urine Ketones Negative mg/dL (NEGATIVE) 01/28/18 12:25 Urine Blood Negative (NEGATIVE) 01/28/18 12:25 Urine Nitrate Negative (NEGATIVE) 01/28/18 12:25 Urine Bilirubin Negative (NEGATIVE) 01/28/18 12:25 Urine Urobilinogen 0.2-1.0 mg/dL (0.2-1.0) 01/28/18 12:25 Ur Leukocyte Esterase Neg [place]/uL (Negative) 01/28/18 12:25 Urine RBC (Auto) 10 /hpf (0-3) H 01/28/18 12:25 Urine Microscopic WBC 3 /hpf (0-5) 01/28/18 12:25 Ur Squamous Epith Cells 1 /hpf (0-5) 01/28/18 12:25 Influenza Typ A,B (EIA) Negative for flu a/b (NEGATIVE) 01/28/18 17:56 Ur L.pneumophila Ag Negative (NEGATIVE) 01/30/18 15:40 - Hospital Course Hospital Course: 57 yo man w/ PMH of nephrolithiasis presents to the ED w/ fever for 4-5 days w/ Tmax of 102.0F. Patient reports associated dry cough, chills, and night sweats and also reports right sided lower back pain for 4-5 days as well. CXR and chest CT reported positive for R lower lobe pneumonia. Patient admitted for IV abx treatment. ID and Pulmonology were consulted, Patient received Ceftriaxone and Azithromycin 4 days, CBC and CMP wnl, lactate 2.4, fever resolved during admission. Blood, urine and sputum cx were negative. Repeat CXR stable RLL consolidation. VSS. Patient symptoms improved and was discharged home in stable condition. Patient with instruction to f/u with PCP in 1 week and Rx for levaquin sent to pharmacy, pt to complete 7 days of treatment. Discharge Exam - Head Exam Head Exam: NORMAL INSPECTION - Eye Exam Eye Exam: EOMI, PERRL - Respiratory Exam Respiratory Exam: NORMAL BREATHING PATTERN. absent: Prolonged Expiratory Phase, Rales (scattered on R lower lobe) - Cardiovascular Exam Cardiovascular Exam: REGULAR RHYTHM, +S1, +S2. absent: Tachycardia - GI/Abdominal Exam GI & Abdominal Exam: Normal Bowel Sounds, Soft. absent: Distended, Tenderness - Back Exam Back exam: absent: CVA tenderness (L), CVA tenderness (R) - Neurological Exam Neurological exam: Alert, CN II-XII Intact, Oriented x3 - Skin Skin Exam: Dry, Intact, Warm Discharge Plan - Discharge Medications Prescriptions: Levofloxacin [Levaquin] 750 mg PO DAILY 7 Days #7 tablet - Follow Up Plan Condition: GOOD Disposition: HOME/ ROUTINE Instructions: Pneumonia, Adult (DC) Additional Instructions: appointment with Dr. Garcia sundayfebruary 08 at 9:[address] Harper february 11 at 10:45am Referrals: Ruthy Hancock MD [Staff Provider] - Rakesh Harper MD [Primary Care Provider] - Long Garcia MD [Staff Provider] -
--- NOTE | 2018-02-01 11:05 | RAD ---
Date of service: 02/01/2018 HISTORY: RLL pneumonia COMPARISON: No prior. TECHNIQUE: Chest PA and lateral FINDINGS: LUNGS: Probable right lower lobe infiltrate. No significant radiographic change in extent compared to 01/30/2018. PLEURA: No definite pleural effusion identified. No pneumothorax apparent. CARDIOVASCULAR: Normal. OSSEOUS STRUCTURES: No significant abnormalities. VISUALIZED UPPER ABDOMEN: Normal. OTHER FINDINGS: None. IMPRESSION: Persistent right lower lobe infiltrate.
[2018-02-02 10:58] VITALS: O2SAT 100
== END 2018-02-01 14:15 | disposition home or self-care (01) | DRG 194 ==
LOC: SUPCPDRO 10:50 → H.ER 10:50 → OBSVTOIN 16:29 → H.ERHOLD 16:29 → H.MEDSURG1 18:30
DX: J15.9 Unspecified bacterial pneumonia (principal); N20.1 Calculus of ureter; Z87.442 Personal history of urinary calculi; G44.209 Tension-type headache, unspecified, not intractable